=== PATIENT | male | born 1980 | race Caucasian/White ===

== ENCOUNTER 2018-11-19 21:59 | Emergency (ER) | payer BC, OTHER ==
[2018-11-19] MEDS ORDERED: Dextrose 5%-0.9% NaCl 1,000 ML IV SCH (22:15)
[2018-11-19] MEDS ORDERED: Metoclopramide 10 MG/2 ML SDV IVPUSH ONE (22:16)
[2018-11-19] MEDS ORDERED: diphenhydrAMINE 50 MG/ML SDV IVPUSH ONE (22:17)
--- NOTE | 2018-11-19 22:20 | EDM.PDOC ---
ED HPI GENERAL MEDICAL PROBLEM - General Chief Complaint: General Stated Complaint: LUMP FORMED RIGHT THIGH Time Seen by Provider: 11/19/18 22:15 Source of Information: Reports: Patient, Family (Significant other) History Limitations: Reports: Intoxication (Patient is heavily intoxicated by alcohol. Very dysarthric speech.) - History of Present Illness INITIAL COMMENTS - FREE TEXT/NARRATIVE: 38-year-old male presents the ED very intoxicated by alcohol. He states he had 5 or 6. Slight but appears to be more than that. He is very dysarthric and rather obtunded. His chief complaint is painful lesion on the inner aspect of his right thigh and diffuse abdominal discomfort and difficulty voiding. States he thinks he wet himself earlier tonight. Difficulty. Rarely in initiating voiding. No dysuria urgency or frequency. He has nonspecific diffuse abdominal discomfort. Denies vomiting. Been drinking today. He did not drink in the last few days. No history of pancreatitis. No previous abdominal surgery. Bowels apparently have been working regularly. Patient is concerned he may have a blood clot in his leg due to's a palpable mass he states is in his right medial thigh.. Onset: Today (Diffuse abdominal discomfort and difficulty voiding for the last couple of days.) Onset Date: 11/19/18 Duration: Day(s):, Intermittent, Waxing/Waning Location: Reports: Abdomen, Other (Left medial thigh lump) Quality: Reports: Ache Severity: Moderate (Difficulty voiding. More troubles initiating voiding sounds like he may have some prostatitis.) Improves with: Reports: None Worsens with: Reports: None Context: Denies: Activity, Exercise, Lifting, Sick Contact, Trauma, Other Associated Symptoms: Reports: Malaise, Nausea/Vomiting (Barely did have soup for supper. Mild nausea with no vomiting), Other. Denies: No Other Symptoms, Confusion, Chest Pain, Cough, cough w sputum, Diaphoresis, Fever/Chills, Headaches, Loss of Appetite, Shortness of Breath, Syncope Treatments BUILDING CARPENTER: Reports: Other (see below) (None.) kidney Pain Score (Numeric/FACES): 7 posterior right upper thigh Pain Score (Numeric/FACES): 5 - Related Data Allergies Allergy/AdvReac Type Severity Reaction Status Date / Time No Known Allergies Allergy Verified 11/19/18 22:10 Home Meds: Home Meds Doxycycline [Vibramycin] 100 mg PO BID #60 cap 11/19/18 [Rx] Esomeprazole Magnesium [Nexium] 40 mg PO DAILY 11/19/18 [History] Multivitamin [One Daily] 1 each PO DAILY 11/19/18 [History] Past Medical History - Past Health History Medical/Surgical History: Denies Medical/Surgical History Gastrointestinal History: Reports: GERD (Takes Nexium daily for GERD) Social & Family History - Family History Family Medical History: Noncontributory - Tobacco Use Smoking Status *Q: Current Some Day Smoker Years of Tobacco use: 5 Packs/Tins Daily: 0.1 - Caffeine Use Caffeine Use: Reports: Coffee, Soda - Alcohol Use Date of Last Drink: 11/19/18 Time of Last Drink: 21:00 - Recreational Drug Use Recreational Drug Use: No - Living Situation & Occupation Living situation: Reports: Single Occupation: Employed ED ROS GENERAL - Review of Systems Review Of Systems: See Below Constitutional: Reports: Malaise, Fatigue. Denies: Fever, Chills HEENT: Reports: No Symptoms Respiratory: Reports: No Symptoms Cardiovascular: Reports: No Symptoms Endocrine: Reports: No Symptoms GI/Abdominal: Reports: Abdominal Pain (Complains of generalized abdominal discomfort both flanks and sides of the abdomen.), Nausea. Denies: Constipation , Diarrhea, Decreased Appetite, Difficulty Swallowing, Distension, Flatus, Hematemesis, Hematochezia, Melena, Stool Incontinence (Mild nausea without any vomiting) : Reports: Frequency, Urgency, Other (Was initiating voiding hesitancy with perhaps very mild dysuria onset of voiding.) Musculoskeletal: Reports: Other (Feels a lump on the inside of his right thigh which I was not able to localize or identified.) Skin: Reports: No Symptoms Neurological: Reports: Difficulty Walking (Patient is pretty obtunded this point time from alcohol. Ataxic gait), Other Psychiatric: Reports: No Symptoms Hematologic/Lymphatic: Reports: No Symptoms Immunologic: Reports: No Symptoms ED EXAM, GENERAL - Physical Exam Exam: See Below Exam Limited By: Intoxication (Very dysarthric and ataxic gait.) General Appearance: Lethargic Throat/Mouth: Other Head: Atraumatic, Normocephalic (Tongue is mildly dry and coated. Breath smells strongly of alcohol.) Neck: Normal Inspection, Supple, Non-Tender, Full Range of Motion. No: Lymphadenopathy (L), Lymphadenopathy (R) Respiratory/Chest: No Respiratory Distress, Lungs Clear, Normal Breath Sounds, No Accessory Muscle Use, Chest Non-Tender Cardiovascular: Normal Peripheral Pulses, Regular Rate, Rhythm, No Edema, No Gallop, No Murmur, No Rub Peripheral Pulses: 3+: Posterior Tibial (L), Posterior Tibial (R), Dorsalis Pedis (L), Dorsalis Pedis (R) GI/Abdominal: Normal Bowel Sounds, Soft, Non-Tender, No Organomegaly, No Abnormal Bruit, No Mass, Pelvis Stable, Tender (Perhaps slightly tender suprapubically.), Other. No: Guarding, Rigid (Has a few lipomas on his abdominal wall but I couldn't identify any other masses.), Rebound Back Exam: Normal Inspection, Full Range of Motion. No: CVA Tenderness (L), CVA Tenderness (R) Extremities: Other (His some tenderness along the medial distal hamstring muscle medial thigh but I could not identify any definitive mass or lesion. Could not identify a lipoma. There is no clinical evidence of a DVT. Calf musculature is soft and comply below. There is no distention of either lower extremity.) Neurological: Oriented, Normal Cognition, Other ( is markedly in under the influence of alcohol this time). No: Normal Gait Skin Exam: Warm, Dry, Intact, Normal Color, No Rash Course - Vital Signs Last Recorded V/S: Last Vital Signs Temp 36.1 C 11/19/18 22:00 Pulse 92 11/19/18 22:00 Resp 18 11/19/18 22:00 BP 140/93 H 11/19/18 22:00 Pulse Ox 96 11/19/18 22:00 - Orders/Labs/Meds Orders: Active Orders 24 hr Category Date Time Status Abdomen 1V Flat [CR] Stat Exams 11/19/18 22:17 Taken Labs: Laboratory Tests 11/19/18 11/19/18 11/19/18 Range/Units 22:20 22:22 22:22 WBC 7.65 (4.23-9.07) K/mm3 RBC 5.08 (4.63-6.08) M/mm3 Hgb 16.1 (13.7-17.5) gm/L Hct 45.2 (40.1-51.0) % MCV 89.0 (79.0-92.2) fl MCH 31.7 (25.7-32.2) pg MCHC 35.6 H (32.2-35.5) g/dl RDW Std Deviation 37.2 (35.1-43.9) fL Plt Count 223 (163-337) K/mm3 MPV 9.5 (9.4-12.3) fl Neutrophils % (Manual) 48 (40-60) % Band Neutrophils % 0 (0-10) % Lymphocytes % (Manual) 44 H (20-40) % Atypical Lymphs % 0 % Monocytes % (Manual) 6 (2-10) % Eosinophils % (Manual) 1 (0.8-7.0) % Basophils % (Manual) 1 (0.2-1.2) Platelet Estimate Adequate RBC Morph Comment Normal PT (9.5-12.1) SECONDS INR D-Dimer, Quantitative 0.28 (0.19-0.50) mg/L Sodium (136-145) mEq/L Potassium (3.5-5.1) mEq/L Chloride (98-107) mEq/L Carbon Dioxide (21-32) mEq/L Anion Gap (5-15) BUN (7-18) mg/dL Creatinine (0.7-1.3) mg/dL Est Cr Clr Drug Dosing mL/min Estimated GFR (MDRD) (>60) mL/min BUN/Creatinine Ratio (14-18) Glucose (74-106) mg/dL Calcium (8.5-10.1) mg/dL Total Bilirubin (0.2-1.0) mg/dL AST (15-37) U/L ALT (16-63) U/L Alkaline Phosphatase (46-116) U/L C-Reactive Protein (<1.0) mg/dL Total Protein (6.4-8.2) g/dl Albumin (3.4-5.0) g/dl Globulin gm/dL Albumin/Globulin Ratio (1-2) Amylase (25-115) U/L Urine Color Light yellow (Yellow) Urine Appearance Clear (Clear) Urine pH 7.0 (5.0-8.0) Ur Specific [place] 1.010 (1.005-1.030) Urine Protein Negative (Negative) Urine Glucose (UA) Negative (Negative) Urine Ketones Negative (Negative) Urine Occult Blood Negative (Negative) Urine Nitrite Negative (Negative) Urine Bilirubin Negative (Negative) Urine Urobilinogen 0.2 (0.2-1.0) Ur Leukocyte Esterase Negative (Negative) Urine RBC Not seen (0-5) /hpf Urine WBC Not seen (0-5) /hpf Ur Epithelial Cells Not seen (0-5) /hpf Ur Squamous Epith Cells Not seen (0-5) /hpf Urine Bacteria Not seen (FEW) /hpf Urine Mucus Not seen (FEW) /hpf Ethyl Alcohol (0.00) gm% 11/19/18 11/19/18 11/19/18 Range/Units 22:22 22:22 22:22 WBC (4.23-9.07) K/mm3 RBC (4.63-6.08) M/mm3 Hgb (13.7-17.5) gm/L Hct (40.1-51.0) % MCV (79.0-92.2) fl MCH (25.7-32.2) pg MCHC (32.2-35.5) g/dl RDW Std Deviation (35.1-43.9) fL Plt Count (163-337) K/mm3 MPV (9.4-12.3) fl Neutrophils % (Manual) (40-60) % Band Neutrophils % (0-10) % Lymphocytes % (Manual) (20-40) % Atypical Lymphs % % Monocytes % (Manual) (2-10) % Eosinophils % (Manual) (0.8-7.0) % Basophils % (Manual) (0.2-1.2) Platelet Estimate RBC Morph Comment PT 9.8 (9.5-12.1) SECONDS INR < 0.93 D-Dimer, Quantitative (0.19-0.50) mg/L Sodium 140 (136-145) mEq/L Potassium 3.6 (3.5-5.1) mEq/L Chloride 103 (98-107) mEq/L Carbon Dioxide 22 (21-32) mEq/L Anion Gap 18.6 H (5-15) BUN 16 (7-18) mg/dL Creatinine 1.2 (0.7-1.3) mg/dL Est Cr Clr Drug Dosing 89.77 mL/min Estimated GFR (MDRD) > 60 (>60) mL/min BUN/Creatinine Ratio 13.3 L (14-18) Glucose 121 H (74-106) mg/dL Calcium 9.0 (8.5-10.1) mg/dL Total Bilirubin 0.6 (0.2-1.0) mg/dL AST 54 H (15-37) U/L ALT 115 H (16-63) U/L Alkaline Phosphatase 102 (46-116) U/L C-Reactive Protein 0.7 (<1.0) mg/dL Total Protein 7.7 (6.4-8.2) g/dl Albumin 4.4 (3.4-5.0) g/dl Globulin 3.3 gm/dL Albumin/Globulin Ratio 1.3 (1-2) Amylase 34 (25-115) U/L Urine Color (Yellow) Urine Appearance (Clear) Urine pH (5.0-8.0) Ur Specific [place] (1.005-1.030) Urine Protein (Negative) Urine Glucose (UA) (Negative) Urine Ketones (Negative) Urine Occult Blood (Negative) Urine Nitrite (Negative) Urine Bilirubin (Negative) Urine Urobilinogen (0.2-1.0) Ur Leukocyte Esterase (Negative) Urine RBC (0-5) /hpf Urine WBC (0-5) /hpf Ur Epithelial Cells (0-5) /hpf Ur Squamous Epith Cells (0-5) /hpf Urine Bacteria (FEW) /hpf Urine Mucus (FEW) /hpf Ethyl Alcohol 0.20 (0.00) gm% Meds: Medications Discontinued Medications Generic Name Dose Route Start Last Admin Trade Name Freq PRN Reason Stop Dose Admin Diphenhydramine HCl 25 mg 11/19/18 22:17 11/19/18 22:25 Benadryl IVPUSH 11/19/18 22:18 25 mg ONETIME ONE Administration Dextrose/Sodium Chloride 1,000 mls @ 999 mls/hr 11/19/18 22:15 11/19/18 22:28 Dextrose 5%-Normal Saline IV 999 mls/hr ASDIRECTED SRAVANI Administration Magnesium Citrate 240 ml 11/19/18 23:44 11/19/18 23:54 Citrate Of Magnesia PO 11/19/18 23:45 240 ml ONETIME ONE Administration Metoclopramide HCl 10 mg 11/19/18 22:16 11/19/18 22:23 Reglan IVPUSH 11/19/18 22:17 10 mg ONETIME ONE Administration - Radiology Interpretation Free Text/Narrative:: 38-year-old male presents the ED with vague abdominal discomfort. Also his chief complaint his hesitancy or problems initiating voiding. He may have a prostatitis. He drinks alcohol fairly regularly and he got 5-6 beers tonight. If clinically appears to have it but double that. Is very intoxicated at present time. Symptoms are very vague. He has a benign abdominal examination. He 's complaining of a lesion or swelling on the medial aspect of his right thigh and concern that he may have a blood clot. Upon examination I could find no such mass or concern for DVT in either lower extremity. Benign abdominal examination. Plan IV D5 normal saline at open. Reglan given Reglan 10 mg IV for nausea relief Benadryl 25 mg IV for prevention of dystonic reaction. Urinalysis and routine labs to be collected including an amylase. - Re-Assessments/Exams Free Text/Narrative Re-Assessment/Exam: 11/19/18 22:47 KUB reveals increased stool throughout the right hemicolon and across the transverse colon. This is compatible with modest constipation. Likely is the reason for his abdominal complaints. Free Text/Narrative Re-Assessment/Exam: 11/19/18 23:17 Total white count is 7.65 with 40% neutrophils and 44% lymphocytes. Hemoglobin is 16.1 with hematocrit of 45.2 by a mildly hemoconcentrated. Bili count 223,000. PT is 9.8 with an INR of 0.93. D-dimer is less than 0.28. Sodium 140 with potassium of 3.6 chloride 103 with a bicarbonate 22. Anion gap is elevated 18.6. This is likely from alcohol-induced ketosis. BUN is 16 with a any new 1.2. GFR is greater than 60. Glucose 121. Calcium 9.0. Liver function is shows a bilirubin of 0.6. AST mildly elevated at 54. ALT mildly elevated 1:15. Alkaline phosphatase normal 102. C-reactive protein 0.7. Protein 7.7 with albumin fraction of 4.4. Amylase is normal at 34. Urinalysis completely normal. Blood alcohol 0.20 g percent. Therefore findings of examination suggests constipation as a cause of his diffuse abdominal discomfort. His history suggests that he likely has a component of prostatitis likely from alcohol use. Going to have him take magnesium citrate tomorrow 7 ounces by mouth next with 5 ounces of juice of choice to provide bowel cleanse. Replacement Doxil cycle 100 mg twice daily for the next month to clear up prostatitis. Departure - Departure Time of Disposition: 23:45 Disposition: Home, Self-Care 01 Condition: Fair Clinical Impression: Multiple lipomas Abdominal pain Qualifiers: Abdominal location: generalized Qualified Code(s): R10.84 - Generalized abdominal pain Prostatitis Qualifiers: Prostatitis type: acute Qualified Code(s): N41.0 - Acute prostatitis - Discharge Information *PRESCRIPTION DRUG MONITORING PROGRAM REVIEWED*: Not Applicable *COPY OF PRESCRIPTION DRUG MONITORING REPORT IN PATIENT SUZIE: Not Applicable Prescriptions: Doxycycline [Vibramycin] 100 mg PO BID #60 cap Instructions: Prostatitis, Lipoma Referrals: PCP,None [Primary Care Provider] - Forms: ED Department Discharge Additional Instructions: Evaluation the emergency room tonight due to complaint of generalized abdominal discomfort and hesitancy and difficulty starting your urine flow. Also concerns of a mass in her aspect of right thigh and concern for possible blood clot. Moderately intoxicated by alcohol. Current blood alcohol is 0.20 g percent. Lab work did not reveal any significant abnormalities. In particular no signs of pancreatitis. Enzymes are mildly elevated from alcohol use. Urinalysis also proved to be normal. This often the case when you have prostatitis which means inflammation of the prostate gland. History suggests that you have a prostate gland infection and that's what the reason you're having hesitancy and some burning with initiating voiding. Blood clotting enzymes proved to be negative therefore there is no evidence of blood clot in your leg or thigh. I suspect that you're feeling is a lipoma similar to what you feel one year abdominal wall which is a fatty tumor and is of no consequence unless they get large enough to require excision. The x-ray of the head and encouraged firm constipation with increased stool throughout the right hemicolon and transverse colon likely the cause of your abdominal pain. I would suggest use of magnesium citrate tomorrow morning. Takes 7 ounces mixed with 5 ounces of juice of choice once this will usually start your bowels to working in 1-2 hours. Bowels will usually move 3 or 4 times providing bowel cleanse and relief of abdominal discomfort. Prostate date gland is aggravated by alcohol and I would strongly suggest backing off of alcohol use for a period of time. Also spicy foods and peppers like to irritate the prostate gland as well. I will place her on antibiotic doxycycline 100 mg twice daily for the next month to clear up prostate gland infection. Prostate gland infection is difficult to clear up and therefore you need a prolonged treatment with antibiotic to clear it up otherwise it comes right back. - My Orders Last 24 Hours: My Active Orders 11/19/18 22:17 Abdomen 1V Flat [CR] Stat - Assessment/Plan Last 24 Hours: My Active Orders 11/19/18 22:17 Abdomen 1V Flat [CR] Stat
[2018-11-19] MEDS ORDERED: Magnesium Citrate Solution 296 ML Bottle PO ONE (23:44)
--- NOTE | 2018-11-20 06:58 | CR ---
Abdomen: Supine view of the abdomen was obtained. Comparison: No prior abdominal x-ray. Bowel gas pattern is normal. Bony structures appear within normal limits for the patient's age. No abnormal calcification or soft tissue abnormality is seen. Impression: 1. Nothing acute is seen on supine abdominal x-ray. Diagnostic code #1
== END 2018-11-19 23:58 | disposition home or self-care (01) ==
LOC: JD.ED 21:59
DX: N41.0 Acute prostatitis (principal); D17.9 Benign lipomatous neoplasm, unspecified; K21.9 Gastro-esophageal reflux disease without esophagitis; F17.210 Nicotine dependence, cigarettes, uncomplicated; Z79.899 Other long term (current) drug therapy
CPT/HCPCS: 36415; 74018; 80053; 81001; 82150; 85007; 85027; 85379; 85610; 86140; 96361; 96374; 96375; 99284; A9270; G0480; J1200; J2765; J7042